=== PATIENT | female | born 1945 | race Caucasian/White ===

== ENCOUNTER → 2016-05-30 | Outpatient (CLI) | payer MEDICARE ==
--- NOTE | 2016-05-31 07:55 | US ---
EXAMINATION TYPE: US thyroid st tissue head/neck DATE OF EXAM: 05/30/2016 4:09 PM COMPARISON: NONE CLINICAL HISTORY: US. Edema right neck, history of recent ear infection TECHNOLOGIST IMPRESSION: Hypoechoic area right neck = 1.3 x 0.6 x 1.1cm, possible lymph node. Incide ntal finding: hypoechoic area right lobe of thyroid = 1.1 x 0.7 x 0.9cm This is not a classic lymph node. IMPRESSION: Hypoechoic mass in the right neck. A CT scan of the neck would be suggested.
== END | disposition home or self-care (01) ==
LOC: RADUSWWP 15:38
PROVIDERS: ATTEND Family Medicine
DX: R22.1 Localized swelling, mass and lump, neck (principal)
CPT/HCPCS: 76536

== ENCOUNTER → 2016-06-07 | Outpatient (CLI) | payer MEDICARE ==
[2016-06-07 14:00] LABS: Blood Urea Nitrogen 18 mg/dL (7-17); Non-African American GFR(MDRD) >60 (>60 ml/min/1.73 sqM)
--- NOTE | 2016-06-07 17:12 | CT ---
EXAMINATION TYPE: CT soft tissue neck w con DATE OF EXAM: 06/07/2016 2:32 PM COMPARISON: NONE HISTORY: Right sided neck swelling marked by BB CT DLP: 453 mGycm CONTRAST: Patient injected with 100 mL of Omnipaque 300. TECHNIQUE: Axial images at 3 mm thick sections. Reconstructed images in the coronal plane and sagitt al plane are reviewed. FINDINGS: Limited CT sections are obtained the lung apices. The lung apices appear clear. CT neck: The torus tubarius and fossa of Rosenmuller are normal. Test Desk Operator spaces are normal. Para nasal sinuses and mastoid air cells are clear. Thyroid is somewhat heterogenous. Parotid glands appear normal and symmetrical. Submandibular glands, are normal. Parapharyngeal spac es are normal. No suspicious adenopathy is evident. Previous placed over the right infraparotid kristi on. No suspicious underlying mass is evident. No suspicious adenopathy is evident. The hypopharynx appears within normal limits. Vocal cord level appear symmetrical. Thyroid as visualized is normal. Osseous structures are normal. IMPRESSIONS: 1. No suspicious abnormality to correspond to the palpable abnormality marked by the BB.
== END ==
LOC: RADCTMAIN 13:10
PROVIDERS: ATTEND Family Medicine
DX: R22.1 Localized swelling, mass and lump, neck (principal)
CPT/HCPCS: 82565; 84520; 70491; 36415; Q9967

== ENCOUNTER → 2017-02-01 | Outpatient (CLI) | payer MEDICARE ==
--- NOTE | 2017-02-01 14:14 | CT ---
EXAMINATION TYPE: CT iac wo con DATE OF EXAM: 02/01/2017 COMPARISON: CT neck June 07, 2016. HISTORY: Patient complains of recurrent ear infections and right sided hearing loss. CT DLP: 150 mGycm. Automated Exposure Control for Dose Reduction was Utilized. TECHNIQUE: CT scan of internal auditory canal is performed without contrast, thin cut axial images ar e obtained, coronal reformatted images are also reviewed. FINDINGS: The external auditory canals are patent bilaterally. Mastoid air cells show no evidence of abnormal opacification bilaterally. The middle ear ossicles are symmetric and unremarkable. There is no evidence of suspicious surrounding soft tissue density to suggest cholesteatoma. The scutum is preserved bilaterally. The cochlea and the semicircular canals are symmetric. Superior semicircular canal shows no definitive overlying bone on coronal images 91 bilaterally. Vestibular aqueduct and i nternal carotid canal appear unremarkable. Temporomandibular joints are maintained bilaterally. Visualized paranasal sinuses are grossly clear. Visualized portion brain parenchyma is felt within normal limits. IMPRESSION: No significant abnormality seen to account for patient's symptoms of right-sided hearing loss and recurrent ear infections. Superior semicircular canal dehiscence syndrome would be difficul t to exclude in the appropriate clinical setting.
== END | disposition home or self-care (01) ==
LOC: RADCTMAIN 12:25
PROVIDERS: ATTEND Otolaryngology
DX: H90.A11 Conductive hearing loss, unilateral, right ear with restricted hearing on the contralateral side (principal)
CPT/HCPCS: 70480

== ENCOUNTER → 2017-04-09 | Outpatient (CLI) | payer MEDICARE ==
--- NOTE | 2017-04-09 17:07 | BD ---
EXAMINATION TYPE: MG DEXA axial skeleton. DATE OF EXAM: 04/09/2017 COMPARISON: NONE CLINICAL HISTORY: 71-year-old female osteopenia Height: 60 IN Weight: 127 LBS FRAX RISK QUESTIONS: Alcohol (3 or more units per day): NO Family History (Parent hip fracture): NO Glucocorticoids (More than 3mos): NO (Ex: prednisone, prednisolone, methylprednisolone, dexamethasone, and hydrocortisone). History of Fracture in Adulthood: NO Secondary Osteoporosis: 1. Type 1 Diabetes: NO 2. Hyperthyroidism: NO 3. Menopause before 45: YES HYSTERECTOMY AGE 39 4. Malnutrition: NO 5. Chronic liver disease: NO Rheumatoid Arthritis: NO Current Tobacco Use: NO RISK FACTORS HISTORY OF: Family History of Osteoporosis: MOTHER, GRANDMOTHER(M), AUNT(M) Active: YES Postmenopausal woman: AGE 39 Take estrogen and/or progesterone medications: YES How long: PREMARIN SINCE AGE 39 MEDICATIONS: Osteoporosis Medications: YES Which medication: FOSAMAX How Lon YEARS+ Additional Medications: PREMARIN, ALENDRONATE SODIUM, MULTI VITAMIN, MELOXICAM, FLEXERIL, EXAM MEASUREMENTS: Bone mineral densitometry was performed using the [employer] System. Bone mineral density as measured about the Lumbar spine is: ----- L1-L4(G/cm2): 1.101 T Score Values are as follows: ----- L2: -0.4 ----- L3: -0.3 ----- L4: -1.4 ----- L1-L4: -0.7 Bone mineral density has: Increased 3.9% since study of: 02/14/2013 Bone mineral density about the R hip (g/cm2): 0.820 Bone mineral density about the L hip (g/cm2): 0.865 T Score values are as follows: -----R Neck: -1.6 -----L Neck: -1.2 -----R Total: -1.0 -----L Total: -0.4 Bone mineral density has: Increased 2.0% since study of: 02/14/2013 IMPRESSION: Osteopenia (T Score between -2.5 and -1 as noted by T score values There is slightly increased risk of fracture and the patient may be considered for treatment. Re-Screen 2-5 years. NOTE: T-SCORE=SD OF THE YOUNG ADULT MEAN.
--- NOTE | 2017-04-10 11:53 | MM ---
Reason for exam: screening (asymptomatic). Last mammogram was performed 1 year ago. History: Patient is postmenopausal and history of other cancer. Family history of breast cancer in mother at age 75. Benign left breast aspiration of the left breast, February 16, 2012. Taking estrogen for 23 years beginning at age 45. Physical Findings: A clinical breast exam by your physician is recommended on an annual basis and results should be correlated with mammographic findings. MG 3D Screening Mammo W/Cad Bilateral CC and MLO view(s) were taken. Prior study comparison: April 06, 2016, bilateral MG 3d screening mammo w/cad. February 17, 2015, bilateral MG diagnostic mammo w CAD [facility]. The breast tissue is heterogeneously dense. This may lower the sensitivity of mammography. Finding: There are typically benign vascular, round calcifications in both breasts. There is a chronic nodularity bilaterally. There is no discrete abnormality. ASSESSMENT: Benign, BI-RAD 2 RECOMMENDATION: Routine screening mammogram of both breasts in 1 year.
== END | disposition home or self-care (01) ==
LOC: RADMAMWWP 09:33
PROVIDERS: ATTEND Family Medicine
DX: Z12.31 Encounter for screening mammogram for malignant neoplasm of breast (principal); M85.80 Other specified disorders of bone density and structure, unspecified site
CPT/HCPCS: 77080; 77063; G0202

== ENCOUNTER → 2018-04-10 | Outpatient (CLI) | payer MEDICARE ==
--- NOTE | 2018-04-11 11:58 | MM ---
Reason for exam: screening (asymptomatic). Last mammogram was performed 1 year ago. History: Patient is postmenopausal and history of other cancer. Family history of breast cancer in mother at age 75. Benign left breast aspiration of the left breast, February 16, 2012. Taking estrogen for 23 years beginning at age 45. MG 3D Screening Mammo W/Cad Bilateral CC and MLO view(s) were taken. Prior study comparison: April 09, 2017, bilateral MG 3d screening mammo w/cad. April 06, 2016, bilateral MG 3d screening mammo w/cad. The breast tissue is heterogeneously dense. This may lower the sensitivity of mammography. There is a focal asymmety in the upper outer left breast 5.7 cm from the nipple. Finding is new when compared to previous study. ASSESSMENT: Incomplete: need additional imaging evaluation, BI-RAD 0 RECOMMENDATION: Special view mammogram of the left breast.
== END ==
LOC: RADMAMWWP 15:55
PROVIDERS: ATTEND Family Medicine
DX: Z12.31 Encounter for screening mammogram for malignant neoplasm of breast (principal)
CPT/HCPCS: 77063; 77067

== ENCOUNTER → 2018-04-17 | Outpatient (CLI) | payer MEDICARE ==
--- NOTE | 2018-04-17 12:02 | MM ---
Reason for exam: additional evaluation requested from abnormal screening. Last mammogram was performed less than 1 month ago. History: Patient is postmenopausal and history of other cancer. Family history of breast cancer in mother at age 75. Benign left breast aspiration of the left breast, February 16, 2012. Taking estrogen for 23 years beginning at age 45. Physical Findings: Nurse did not find any significant physical abnormalities on exam. MG 3D Work Up W/Cad LT Spot compression CC, spot compression MLO, and LM view(s) were taken of the left breast. Prior study comparison: April 10, 2018, bilateral MG 3d screening mammo w/cad. April 09, 2017, bilateral MG 3d screening mammo w/cad. The breast tissue is heterogeneously dense. This may lower the sensitivity of mammography. 7mm nodularity persists on spot 3D CC and 3D LM, slightly less defined on spot MLO. Located at 2 o'clock. These results were verbally communicated with the patient and result sheet given to the patient on 04/17/18. ASSESSMENT: Incomplete: need additional imaging evaluation, BI-RAD 0 RECOMMENDATION: Ultrasound of the left breast. (2 o'clock)
--- NOTE | 2018-04-17 12:05 | USB ---
Reason for exam: additional evaluation requested from abnormal screening. History: Patient is postmenopausal and history of other cancer. Family history of breast cancer in mother at age 75. Benign left breast aspiration of the left breast, February 16, 2012. Taking estrogen for 23 years beginning at age 45. US Breast Workup Limited LT Left limited breast ultrasound including focal area of concern, retroareolar and axilla demonstrates a 0.3 x 0.3 x 0.2cm oval lesion too small to characterize at 1 o'clock, a 0.5 x 0.4 x 0.4cm oval, cystic lesion at 2 o'clock, a 0.4 x 0.3 x 0.3cm oval, cystic lesion at 2 o'clock, a 0.5 x 0.6 x 0.5cm oval, clustered, hypoechoic lesion at 2:30, possibly a collapsed cyst given an 8mm cyst in this location in 2012, likely corresponds to the mammographic finding, 6 month follow up recommended and a 0.4 x 0.5 x 0.2cm oval, cystic lesion at 3 o'clock. These results were verbally communicated with the patient and result sheet given to the patient on 04/17/18. ASSESSMENT: Probably benign, BI-RAD 3 RECOMMENDATION: Follow-up diagnostic mammogram and ultrasound of the left breast in 6 months. (targeted 2 o'clock, 2:30 zone A)
== END | disposition home or self-care (01) ==
LOC: RADMAMWWP 07:52
PROVIDERS: ATTEND Family Medicine
DX: R92.8 Other abnormal and inconclusive findings on diagnostic imaging of breast (principal)
CPT/HCPCS: 77065; 76642; G0279; 77061

== ENCOUNTER → 2018-10-23 | Outpatient (CLI) | payer MEDICARE ==
--- NOTE | 2018-10-23 09:29 | MM ---
Reason for exam: follow-up at short interval from prior study. Last mammogram was performed 6 months ago. History: Patient is postmenopausal and history of other cancer. Family history of breast cancer in mother at age 75 and breast cancer in maternal grandmother at age 70. Benign left breast aspiration of the left breast, February 16, 2012. Taking estrogen for 23 years beginning at age 45. Physical Findings: Nurse Summary: 0.5cm nodule in the left breast at 4 o'clock (nurse mj). MG 3D Diag Mammo W/Cad LT CC and MLO view(s) were taken of the left breast. Prior study comparison: April 17, 2018, left breast MG 3d work up w/cad LT. April 10, 2018, bilateral MG 3d screening mammo w/cad. The breast tissue is heterogeneously dense. This may lower the sensitivity of mammography. There is chronic nodularity in the left breast. No significant new findings when compared with previous films. These results were verbally communicated with the patient and result sheet given to the patient on 10/23/18. ASSESSMENT: Incomplete: need additional imaging evaluation, BI-RAD 0 RECOMMENDATION: Ultrasound of the left breast. Manage patient on a clinical basis.
--- NOTE | 2018-10-23 09:32 | USB ---
Reason for exam: additional evaluation requested from abnormal screening. History: Patient is postmenopausal and history of other cancer. Family history of breast cancer in mother at age 75 and breast cancer in maternal grandmother at age 70. Benign left breast aspiration of the left breast, February 16, 2012. Taking estrogen for 23 years beginning at age 45. US Breast Limited LT Left limited breast ultrasound including focal area of concern, retroareolar and axilla demonstrates three cystic lesions measuring 0.5 x 0.5 x 0.3cm at 1 o'clock, 0.6 x 0.5 x 0.4cm at 2 o'clock and 0.3 x 0.3 x 0.2cm at 4 o'clock. These results were verbally communicated with the patient and result sheet given to the patient on 10/23/18. ASSESSMENT: Benign, BI-RAD 2 RECOMMENDATION: Return to routine screening mammogram schedule for both breasts. Back on schedule. Manage patient on a clinical basis.
== END | disposition home or self-care (01) ==
LOC: RADMAMWWP 08:09
PROVIDERS: ATTEND Family Medicine
DX: R92.8 Other abnormal and inconclusive findings on diagnostic imaging of breast (principal)
CPT/HCPCS: 77065; 76642; G0279; 77061

== ENCOUNTER → 2019-11-27 | Outpatient (CLI) | payer MEDICARE ==
--- NOTE | 2019-11-27 10:34 | USB ---
Reason for exam: clinical finding. History: Patient is postmenopausal and history of other cancer. Family history of breast cancer in mother at age 75 and breast cancer in maternal grandmother at age 70. Benign left breast aspiration of the left breast, February 16, 2012. Taking estrogen for 23 years beginning at age 45. Physical Findings: Nurse Summary: Patient complains of left lower outer quadrant tender achy x 2 months intermittent, all soft, moves, bilateral thickening 12 o'clock (nurse TM). US Breast BILAT Right complete breast ultrasound includes all four quadrants, the retroareolar region and axilla. Finding demonstrates a 0.4 x 0.3 x 0.5cm cystic cluster at 4 o'clock and a 0.6 x 0.5 x 0.6cm mixed, lobulated lesion at 7 o'clock, 6 month follow up recommended. Left complete breast ultrasound includes all four quadrants, the retroareolar region and axilla. Finding demonstrates a 0.5 x 0.6 x 0.4cm hypoechoic lesion at 2 o'clock vertically oriented but unchanged from 10/23/18 but larger from 04/17/18, follow up recommended, a 0.7 x 0.3 x 0.6cm cystic cluster at 6 o'clock and a 0.7 x 0.3 x 0.9cm cystic cluster at 11 o'clock. These results were verbally communicated with the patient and result sheet given to the patient on 11/27/19. ASSESSMENT: Incomplete: need additional imaging evaluation, BI-RAD 0 RECOMMENDATION: Special view mammogram of both breasts. (as the patient is past due for her annual)
--- NOTE | 2019-11-27 10:36 | MM ---
Reason for exam: additional evaluation requested from prior study. Last mammogram was performed 1 year and 1 month ago. History: Patient is postmenopausal and history of other cancer. Family history of breast cancer in mother at age 75 and breast cancer in maternal grandmother at age 70. Benign left breast aspiration of the left breast, February 16, 2012. Taking estrogen for 23 years beginning at age 45. MG 3D Diag Mammo W/Cad [facility] Bilateral CC and MLO view(s) were taken. Prior study comparison: October 23, 2018, left breast MG 3d diag mammo w/cad LT. April 17, 2018, left breast MG 3d work up w/cad LT. The breast tissue is heterogeneously dense. This may lower the sensitivity of mammography. There is chronic nodularity bilaterally some waxing and waning. Coarse calcifications near right axilla unchanged from 2018. These results were verbally communicated with the patient and result sheet given to the patient on 11/27/19. ASSESSMENT: Probably benign, BI-RAD 3 RECOMMENDATION: Ultrasound of both breasts in 6 months. Manage on a clinical basis with regard to left breast pain.
== END | disposition home or self-care (01) ==
LOC: RADUSWWP 07:21
PROVIDERS: ATTEND Family Medicine
DX: R92.8 Other abnormal and inconclusive findings on diagnostic imaging of breast (principal)
CPT/HCPCS: 77066; 76641; G0279; 77062

== ENCOUNTER → 2021-07-07 | Outpatient (CLI) | payer MEDICARE ==
[2021-07-07 15:51] LABS: African American GFR (CKD) 99.6 (60.0-200.0); Blood Urea Nitrogen 16.9 mg/dL (9.0-27.0); Carbon Dioxide 22.7 mmol/L (20.0-27.5); Chloride 106 mmol/L (96-109); Potassium 4.3 mmol/L (3.5-5.5); Sodium 139 mmol/L (135-145); Total Protein 6.5 g/dL (6.2-8.2)
[2021-07-07 16:25] LABS: ALT 15 U/L (8-44); AST 17 U/L (13-35); Albumin 3.8 g/dL (3.8-4.9); Bilirubin, Conjugated <0.20 mg/dL (0.20-0.40)
[2021-07-07 17:05] LABS: Basophils # (A) 0.04 X 10*3/uL (0.00-0.10); Basophils % (A) 0.8 %; Eosinophils # (A) 0.13 X 10*3/uL (0.04-0.35); Eosinophils % (A) 2.5 %; HCT 38.1 % (37.2-46.3); HGB 11.9 g/dL (12.0-15.0); Immature Grans, Automated 0.4 %; Lymphocytes # (A) 1.76 X 10*3/uL (0.90-5.00); Lymphocytes % (A) 33.9 %; MCH 31.2 pg (27.0-32.0); MCHC 31.2 g/dL (32.0-37.0); MCV 99.7 fL (80.0-97.0); Mean Platelet Volume 9.5 fL (9.5-12.2); Monocytes # (A) 0.49 X 10*3/uL (0.20-1.00); Monocytes % (A) 9.4 %; NRBC Per 100 WBC 0 /100 WBCS (0.0-0.0); Neutrophils # (A) 2.75 X 10*3/uL (1.80-7.70); Platelet Count 321 X 10*3/uL (140-440); RBC 3.82 X 10*6/uL (4.10-5.20); RDW 14.6 % (11.5-14.5); WBC 5.19 X 10*3/uL (4.50-10.00)
[2021-07-08 12:27] LABS: Alkaline Phosphatase 47 U/L (41-126)
[2021-07-08 13:24] LABS: C Reactive Protein <0.30 mg/dL (0.00-0.80)
== END | disposition home or self-care (01) ==
LOC: LABWHC1 08:03
PROVIDERS: ATTEND Internal Medicine Rheumatology
DX: M12.9 Arthropathy, unspecified (principal); Z79.899 Other long term (current) drug therapy
CPT/HCPCS: 36415; 80051; 82040; 82247; 82310; 82565; 84075; 84155; 84450; 84460; 84520; 85025; 85652; 86140

== ENCOUNTER → 2021-09-20 | Outpatient (CLI) | payer MEDICARE ==
[2021-09-20 14:28] LABS: African American GFR (CKD) 84.2 (60.0-200.0); Blood Urea Nitrogen 17.3 mg/dL (9.0-27.0); Calcium 9.3 mg/dL (8.7-10.3); Carbon Dioxide 22.5 mmol/L (20.0-27.5); Chloride 107 mmol/L (96-109); Non-African American GFR(CKD) 72.6 (60.0-200.0); Potassium 4.2 mmol/L (3.5-5.5); Sodium 139 mmol/L (135-145); Total Protein 6.3 g/dL (6.2-8.2)
[2021-09-20 14:29] LABS: Alkaline Phosphatase 56 U/L (41-126)
[2021-09-20 14:34] LABS: ALT 12 U/L (8-44); AST 17 U/L (13-35); Albumin 3.7 g/dL (3.8-4.9); Bilirubin, Conjugated <0.20 mg/dL (0.20-0.40)
[2021-09-20 16:33] LABS: Basophils # (A) 0.06 X 10*3/uL (0.00-0.10); Basophils % (A) 1.1 %; Eosinophils # (A) 0.12 X 10*3/uL (0.04-0.35); Eosinophils % (A) 2.3 %; HCT 32.4 % (37.2-46.3); HGB 11.3 g/dL (12.0-15.0); Immature Grans, Automated 0.4 %; Lymphocytes # (A) 1.76 X 10*3/uL (0.90-5.00); Lymphocytes % (A) 33.4 %; MCH 35.6 pg (27.0-32.0); MCHC 34.9 g/dL (32.0-37.0); MCV 102.2 fL (80.0-97.0); Mean Platelet Volume 9.3 fL (9.5-12.2); Monocytes # (A) 0.51 X 10*3/uL (0.20-1.00); Monocytes % (A) 9.7 %; NRBC Per 100 WBC 0 /100 WBCS (0.0-0.0); Neutrophils % (A) 53.1 %; Platelet Count 314 X 10*3/uL (140-440); RBC 3.17 X 10*6/uL (4.10-5.20); RDW 18.7 % (11.5-14.5); WBC 5.27 X 10*3/uL (4.50-10.00)
[2021-09-20 16:37] LABS: Erythrocyte Sedimentation Rate 1 mm/Hr (0-30)
== END | disposition home or self-care (01) ==
LOC: LABWHC1 07:24
PROVIDERS: ATTEND Internal Medicine Rheumatology
DX: M05.9 Rheumatoid arthritis with rheumatoid factor, unspecified (principal); Z79.899 Other long term (current) drug therapy
CPT/HCPCS: 36415; 80051; 82040; 82247; 82310; 82565; 84075; 84155; 84450; 84460; 84520; 85025; 85652; 86140

== ENCOUNTER → 2021-12-20 | Outpatient (CLI) | payer MEDICARE ==
[2021-12-20 22:36] LABS: African American GFR (CKD) 87.2 (60.0-200.0); Bilirubin, Conjugated <0.20 mg/dL (0.20-0.40); Carbon Dioxide 24.4 mmol/L (20.0-27.5); Chloride 105 mmol/L (96-109); Non-African American GFR(CKD) 75.2 (60.0-200.0); Potassium 4.5 mmol/L (3.5-5.5); Sodium 139 mmol/L (135-145)
[2021-12-20 22:37] LABS: Blood Urea Nitrogen 18.9 mg/dL (9.0-27.0); Calcium 9.9 mg/dL (8.7-10.3)
[2021-12-20 23:46] LABS: Basophils # (A) 0.05 X 10*3/uL (0.00-0.10); Basophils % (A) 0.8 %; Eosinophils # (A) 0.15 X 10*3/uL (0.04-0.35); Eosinophils % (A) 2.3 %; HCT 31.5 % (37.2-46.3); HGB 11.8 g/dL (12.0-15.0); Immature Grans, Automated 0.3 %; Lymphocytes # (A) 1.79 X 10*3/uL (0.90-5.00); Lymphocytes % (A) 26.9 %; MCH 40.1 pg (27.0-32.0); MCHC 37.5 g/dL (32.0-37.0); MCV 107.1 fL (80.0-97.0); Mean Platelet Volume 9.7 fL (9.5-12.2); NRBC Per 100 WBC 0 /100 WBCS (0.0-0.0); Neutrophils # (A) 4.05 X 10*3/uL (1.80-7.70); Neutrophils % (A) 60.7 %; Platelet Count 316 X 10*3/uL (140-440); RBC 2.94 X 10*6/uL (4.10-5.20); RDW 20.9 % (11.5-14.5); WBC 6.66 X 10*3/uL (4.50-10.00)
[2021-12-20 23:51] LABS: Erythrocyte Sedimentation Rate 1 mm/Hr (0-30)
[2021-12-21 02:31] LABS: ALT 14 U/L (8-44); AST 18 U/L (13-35); Albumin 3.9 g/dL (3.8-4.9); Alkaline Phosphatase 56 U/L (41-126); Total Protein 6.7 g/dL (6.2-8.2)
== END | disposition home or self-care (01) ==
LOC: LABWHC1 13:34
PROVIDERS: ATTEND Internal Medicine Rheumatology
DX: M05.9 Rheumatoid arthritis with rheumatoid factor, unspecified (principal); Z79.899 Other long term (current) drug therapy
CPT/HCPCS: 36415; 80051; 82040; 82248; 82310; 82565; 84075; 84155; 84450; 84460; 84520; 85025; 85652; 86140

== ENCOUNTER → 2022-03-27 | Outpatient (CLI) | payer MEDICARE ==
[2022-03-27 14:36] LABS: Erythrocyte Sedimentation Rate 1 mm/Hr (0-30)
[2022-03-27 14:47] LABS: C Reactive Protein 0.9 mg/dL (0.00-0.80)
[2022-03-27 15:01] LABS: African American GFR (CKD) 96.9 (60.0-200.0); Blood Urea Nitrogen 19.8 mg/dL (9.0-27.0); Calcium 9.4 mg/dL (8.7-10.3); Carbon Dioxide 25.1 mmol/L (20.0-27.5); Non-African American GFR(CKD) 83.6 (60.0-200.0); Potassium 4.4 mmol/L (3.5-5.5); Total Protein 6.9 g/dL (6.2-8.2)
[2022-03-27 15:40] LABS: Basophils # (A) 0.06 X 10*3/uL (0.00-0.10); Basophils % (A) 0.9 %; Eosinophils # (A) 0.18 X 10*3/uL (0.04-0.35); Eosinophils % (A) 2.6 %; HGB 12.2 g/dL (12.0-15.0); Immature Grans, Automated 0.3 %; Lymphocytes # (A) 1.67 X 10*3/uL (0.90-5.00); Lymphocytes % (A) 24.1 %; MCH 33.1 pg (27.0-32.0); MCV 100.3 fL (80.0-97.0); Mean Platelet Volume 9.1 fL (9.5-12.2); Monocytes # (A) 0.62 X 10*3/uL (0.20-1.00); Monocytes % (A) 8.9 %; NRBC Per 100 WBC 0 /100 WBCS (0.0-0.0); Neutrophils # (A) 4.38 X 10*3/uL (1.80-7.70); Neutrophils % (A) 63.2 %; Platelet Count 377 X 10*3/uL (140-440); RBC 3.69 X 10*6/uL (4.10-5.20); WBC 6.93 X 10*3/uL (4.50-10.00)
[2022-03-27 23:20] LABS: Microalbumin Creatinine Ratio <30 mg/g Creat (0-30)
== END | disposition home or self-care (01) ==
LOC: LABWHC1 09:05
PROVIDERS: ATTEND Internal Medicine Rheumatology
DX: M05.9 Rheumatoid arthritis with rheumatoid factor, unspecified (principal); Z79.899 Other long term (current) drug therapy
CPT/HCPCS: 36415; 80051; 82043; 82310; 82565; 82570; 84075; 84155; 84450; 84460; 84520; 85025; 85652; 86140

== ENCOUNTER → 2022-06-14 | Outpatient (CLI) | payer MEDICARE ==
--- NOTE | 2022-06-14 15:30 | USB ---
Reason for Exam: Follow-up at short interval from prior study. Patient History: Menarche at age 13. First Full-Term at age 21. Hysterectomy at age 39. Postmenopausal. Currently using Estrogen, beginning at age 45 for 23 years. 02/16/2012, Benign Cyst Aspiration on the left side. Maternal grandmother had breast cancer, age 70. Mother had breast cancer, age 75. Risk Values: Flor 5 year model risk: 3.6%. NCI Lifetime model risk: 8.2%. Technique: Method: Whole Breast Automated. Patient Position: Supine. Prior Study Comparison: 04/17/2018 Left Diagnostic Mammogram, [facility]. 10/23/2018 Left Diagnostic Mammogram, [facility]. 11/27/2019 Bilateral Diagnostic Mammogram, [facility]. Findings: The whole breast of both breasts, the axilla of both breasts and the retroareolar of both breasts were scanned. Scattered simple cysts seen bilaterally throughout both breasts. No abnormality noted by ultrasound.A complete US of all four quadrants of the bilateral breasts and retro-areolar region were reviewed. No solid or cystic masses are identified.. Anechoic benign-appearing cysts are seen bilaterally, leasing representative examples were imaged by the shoe repairer. No suspicious masses or organizing fluid collections. Right: Multiple subcentimeter anechoic cysts are seen throughout the breasts. No suspicious cysts are identified. Left: Multiple subcentimeter anechoic cysts are seen throughout the breasts. No suspicious cysts are identified. Overall Assessment: Benign, BI-RAD 2 Management: Screening Mammogram of both breasts in 1 year. A clinical breast exam by your physician is recommended on an annual basis and results should be correlated with mammographic findings. This exam should not preclude additional follow-up of suspicious palpable abnormalities. Results were given to the patient verbally at the time of exam. Electronically signed and approved by: Daniel Do DO
--- NOTE | 2022-06-14 15:30 | MM ---
Reason for Exam: Additional evaluation requested from prior study. Last mammogram was performed 2 year(s) and 6 month(s) ago. Patient History: Menarche at age 13. First Full-Term at age 21. Hysterectomy at age 39. Postmenopausal. Currently using Estrogen, beginning at age 45 for 23 years. 02/16/2012, Benign Cyst Aspiration on the left side. Maternal grandmother had breast cancer, age 70. Mother had breast cancer, age 75. Risk Values: Flor 5 year model risk: 3.6%. NCI Lifetime model risk: 8.2%. Prior Study Comparison: 05/08/1995 Screening Mammogram, Unknown. 04/09/2017 Bilateral Screening Mammogram, [facility]. 04/17/2018 Left Diagnostic Mammogram, [facility]. 10/23/2018 Left Diagnostic Mammogram, [facility]. 11/27/2019 Bilateral Diagnostic Mammogram, [facility]. Tissue Density: The breast tissue is heterogeneously dense. This may lower the sensitivity of mammography. Findings: Analyzed By CAD. Heterogenous appearance without suspicious mass, calcifications or distortions. Multiple cysts will be confirmed on same-day ultrasound. Overall Assessment: Incomplete: need additional imaging evaluation, BI-RAD 0 Management: Diagnostic Breast Ultrasound of both breasts. A clinical breast exam by your physician is recommended on an annual basis and results should be correlated with mammographic findings. This exam should not preclude additional follow-up of suspicious palpable abnormalities. Results were given to the patient verbally at the time of exam. Electronically signed and approved by: Daniel Do DO
== END | disposition home or self-care (01) ==
LOC: RADMAMWWP 14:06
PROVIDERS: ATTEND Family Medicine
DX: R92.8 Other abnormal and inconclusive findings on diagnostic imaging of breast (principal); N60.02 Solitary cyst of left breast; Z78.0 Asymptomatic menopausal state; Z80.3 Family history of malignant neoplasm of breast
CPT/HCPCS: 77066; 76641; G0279; 77062

== ENCOUNTER → 2022-06-20 | Outpatient (CLI) | payer MEDICARE ==
[2022-06-20 18:49] LABS: Erythrocyte Sedimentation Rate 3 mm/Hr (0-30)
[2022-06-20 20:00] LABS: Basophils # (A) 0.07 X 10*3/uL (0.00-0.10); Basophils % (A) 0.9 %; Eosinophils # (A) 0.14 X 10*3/uL (0.04-0.35); Eosinophils % (A) 1.8 %; HCT 40.7 % (37.2-46.3); HGB 12.9 g/dL (12.0-15.0); Immature Grans, Automated 0.4 %; Lymphocytes % (A) 23.9 %; MCH 31.9 pg (27.0-32.0); MCHC 31.7 g/dL (32.0-37.0); MCV 100.5 fL (80.0-97.0); Mean Platelet Volume 9.7 fL (9.5-12.2); Monocytes # (A) 0.65 X 10*3/uL (0.20-1.00); Monocytes % (A) 8.2 %; NRBC Per 100 WBC 0 /100 WBCS (0.0-0.0); Neutrophils # (A) 5.17 X 10*3/uL (1.80-7.70); Neutrophils % (A) 64.8 %; Platelet Count 374 X 10*3/uL (140-440); RBC 4.05 X 10*6/uL (4.10-5.20); RDW 15.8 % (11.5-14.5); WBC 7.96 X 10*3/uL (4.50-10.00)
[2022-06-20 20:02] LABS: African American GFR (CKD) 85.1 (60.0-200.0); Bilirubin, Conjugated <0.20 mg/dL (0.20-0.40); Blood Urea Nitrogen 21.2 mg/dL (9.0-27.0); Non-African American GFR(CKD) 73.4 (60.0-200.0)
[2022-06-20 20:26] LABS: ALT 12 U/L (8-44); AST 20 U/L (13-35); Albumin 4.1 g/dL (3.8-4.9); Alkaline Phosphatase <5 U/L (41-126); Total Protein 7.3 g/dL (6.2-8.2)
== END | disposition home or self-care (01) ==
LOC: LABWHC1 10:46
PROVIDERS: ATTEND Internal Medicine Rheumatology
DX: M05.9 Rheumatoid arthritis with rheumatoid factor, unspecified (principal); Z79.899 Other long term (current) drug therapy
CPT/HCPCS: 36415; 80051; 82040; 82248; 82310; 82565; 84075; 84155; 84450; 84460; 84520; 85025; 85652; 86140

== ENCOUNTER → 2022-06-27 | Outpatient (CLI) | payer MEDICARE ==
[2022-06-27 10:28] LABS: African American GFR (CKD) 98.9 (60.0-200.0); Bilirubin, Conjugated <0.20 mg/dL (0.20-0.40); Calcium 9.5 mg/dL (8.7-10.3); Carbon Dioxide 24.6 mmol/L (20.0-27.5); Chloride 103 mmol/L (96-109); Non-African American GFR(CKD) 85.4 (60.0-200.0); Sodium 139 mmol/L (135-145)
[2022-06-27 11:16] LABS: Basophils # (A) 0.05 X 10*3/uL (0.00-0.10); Basophils % (A) 0.8 %; Eosinophils # (A) 0.19 X 10*3/uL (0.04-0.35); Eosinophils % (A) 3.1 %; HCT 37.2 % (37.2-46.3); HGB 12.3 g/dL (12.0-15.0); Immature Grans, Automated 0.5 %; Lymphocytes # (A) 1.79 X 10*3/uL (0.90-5.00); Lymphocytes % (A) 29.4 %; MCH 33.2 pg (27.0-32.0); MCHC 33.1 g/dL (32.0-37.0); MCV 100.3 fL (80.0-97.0); Mean Platelet Volume 9.7 fL (9.5-12.2); Monocytes % (A) 8.2 %; NRBC Per 100 WBC 0 /100 WBCS (0.0-0.0); Neutrophils # (A) 3.52 X 10*3/uL (1.80-7.70); Platelet Count 319 X 10*3/uL (140-440); RBC 3.71 X 10*6/uL (4.10-5.20); RDW 16.6 % (11.5-14.5); WBC 6.08 X 10*3/uL (4.50-10.00)
[2022-06-27 11:21] LABS: Erythrocyte Sedimentation Rate 1 mm/Hr (0-30)
[2022-06-27 11:41] LABS: Albumin 3.8 g/dL (3.8-4.9); Alkaline Phosphatase 62 U/L (41-126); Total Protein 6.7 g/dL (6.2-8.2)
== END | disposition home or self-care (01) ==
LOC: LABWHC1 07:32
PROVIDERS: ATTEND Internal Medicine Rheumatology
DX: M05.9 Rheumatoid arthritis with rheumatoid factor, unspecified (principal); Z79.899 Other long term (current) drug therapy
CPT/HCPCS: 36415; 80051; 82040; 82248; 82310; 82565; 84075; 84155; 84520; 85025; 85652; 86140

== ENCOUNTER → 2022-10-09 | Outpatient (CLI) | payer MEDICARE ==
[2022-10-10 02:27] LABS: Albumin 3.8 g/dL (3.8-4.9)
[2022-10-10 02:28] LABS: ALT 10 U/L (8-44); AST 13 U/L (13-35); Alkaline Phosphatase 64 U/L (41-126); Total Protein 6.8 g/dL (6.2-8.2)
[2022-10-10 02:29] LABS: African American GFR (CKD) 98.2 (60.0-200.0); Bilirubin, Conjugated <0.20 mg/dL (0.20-0.40); Blood Urea Nitrogen 19.7 mg/dL (9.0-27.0); Calcium 9.6 mg/dL (8.7-10.3); Carbon Dioxide 25.8 mmol/L (20.0-27.5); Chloride 103 mmol/L (96-109); Non-African American GFR(CKD) 84.8 (60.0-200.0); Potassium 4.3 mmol/L (3.5-5.5); Sodium 140 mmol/L (135-145); Total Bilirubin <0.15 mg/dL (0.30-1.20)
[2022-10-10 05:40] LABS: Basophils # (A) 0.04 X 10*3/uL (0.00-0.10); Basophils % (A) 0.5 %; Eosinophils # (A) 0.25 X 10*3/uL (0.04-0.35); Eosinophils % (A) 2.9 %; HCT 35.7 % (37.2-46.3); HGB 11.8 g/dL (12.0-15.0); Immature Grans, Automated 0.2 %; Immature Platelet Fraction 2.1 % (1.1-6.1); Lymphocytes # (A) 1.82 X 10*3/uL (0.90-5.00); Lymphocytes % (A) 20.8 %; MCH 34.6 pg (27.0-32.0); MCHC 33.1 g/dL (32.0-37.0); MCV 104.7 fL (80.0-97.0); Mean Platelet Volume 8.9 fL (9.5-12.2); Monocytes # (A) 0.66 X 10*3/uL (0.20-1.00); Monocytes % (A) 7.5 %; NRBC Per 100 WBC 0 /100 WBCS (0.0-0.0); Neutrophils # (A) 5.97 X 10*3/uL (1.80-7.70); Neutrophils % (A) 68.1 %; Platelet Count 432 X 10*3/uL (140-440); RBC 3.41 X 10*6/uL (4.10-5.20); RDW 17.6 % (11.5-14.5); WBC 8.76 X 10*3/uL (4.50-10.00)
[2022-10-10 05:53] LABS: Erythrocyte Sedimentation Rate 3 mm/Hr (0-30)
== END | disposition home or self-care (01) ==
LOC: LABWHC1 14:01
PROVIDERS: ATTEND Internal Medicine Rheumatology
DX: M05.9 Rheumatoid arthritis with rheumatoid factor, unspecified (principal); Z79.899 Other long term (current) drug therapy
CPT/HCPCS: 36415; 80051; 82040; 82248; 82310; 82565; 84075; 84155; 84450; 84460; 84520; 85025; 85652; 86140

== ENCOUNTER → 2023-03-23 | Outpatient (CLI) | payer MEDICARE ==
[2023-03-24 00:54] LABS: ALT 10 U/L (8-44); AST 14 U/L (13-35); Albumin 3.9 d/dL (3.8-4.9); Alkaline Phosphatase 64 U/L (41-126); Bilirubin, Conjugated <0.20 mg/dL (0.20-0.40); Blood Urea Nitrogen 21.2 mg/dL (9.0-27.0); Calcium 9.5 mg/dL (8.7-10.3); Carbon Dioxide 17.4 mmol/L (21.6-31.8); Chloride 103 mmol/L (96-109); Potassium 4.3 mmol/L (3.5-5.5); Sodium 140 mmol/L (135-145); Total Bilirubin <0.2 mg/dL (0.3-1.2); Total Protein 7.2 d/dL (6.2-8.2)
[2023-03-24 04:03] LABS: Basophils # (A) 0.06 X 10*3/uL (0.00-0.10); Basophils % (A) 0.5 %; Eosinophils % (A) 1.7 %; HGB 12.2 d/dL (12.0-15.0); Immature Platelet Fraction 2.2 % (1.1-6.1); Lymphocytes # (A) 1.85 X 10*3/uL (0.90-5.00); Lymphocytes % (A) 15.9 %; MCHC 31.3 d/dL (32.0-37.0); MCV 99.2 FL (80.0-97.0); Mean Platelet Volume 8.9 FL (9.5-12.2); Monocytes # (A) 0.92 X 10*3/uL (0.20-1.00); Monocytes % (A) 7.9 %; NRBC Per 100 WBC 0 X 10*3/uL (0.00-0.01); Neutrophils # (A) 8.59 X 10*3/uL (1.80-7.70); Neutrophils % (A) 73.7 %; Platelet Count 373 X 10*3/uL (140-440); RBC 3.93 X 10*6/uL (4.10-5.20); RDW 15.5 % (11.5-14.5); WBC 11.66 X 10*3/uL (4.50-10.00)
== END | disposition home or self-care (01) ==
LOC: LABWHC1 14:05
PROVIDERS: ATTEND Internal Medicine Rheumatology
DX: M05.9 Rheumatoid arthritis with rheumatoid factor, unspecified (principal); Z79.899 Other long term (current) drug therapy
CPT/HCPCS: 36415; 80051; 82040; 82248; 82310; 82565; 84075; 84155; 84450; 84460; 84520; 85025; 85652; 86140

== ENCOUNTER → 2023-06-20 | Outpatient (CLI) | payer MEDICARE ==
[2023-06-20 18:17] LABS: ALT 26 U/L (8-44); AST 21 U/L (13-35); Albumin 3.7 g/dL (3.8-4.9); Alkaline Phosphatase 77 U/L (41-126); Bilirubin, Conjugated <0.20 mg/dL (0.20-0.40); Bilirubin,Unconjugated >0.10 mg/dL (0.20-1.00); Blood Urea Nitrogen 15.7 mg/dL (9.0-27.0); Calcium 9.6 mg/dL (8.7-10.3); Carbon Dioxide 28.3 mmol/L (21.6-31.8); Chloride 102 mmol/L (96-109); Potassium 4.3 mmol/L (3.5-5.5); Sodium 139 mmol/L (135-145); Total Bilirubin 0.3 mg/dL (0.3-1.2); Total Protein 6.4 g/dL (6.2-8.2)
[2023-06-20 20:13] LABS: Basophils # (A) 0.02 X 10*3/uL (0.00-0.10); Basophils % (A) 0.4 %; Eosinophils # (A) 0.03 X 10*3/uL (0.04-0.35); Eosinophils % (A) 0.6 %; HCT 33.6 % (37.2-46.3); HGB 11.9 g/dL (12.0-15.0); Lymphocytes # (A) 1.33 X 10*3/uL (0.90-5.00); Lymphocytes % (A) 28.1 %; MCH 36.3 pg (27.0-32.0); MCHC 35.4 g/dL (32.0-37.0); MCV 102.4 FL (80.0-97.0); Mean Platelet Volume 9.4 FL (9.5-12.2); Monocytes # (A) 0.35 X 10*3/uL (0.20-1.00); Monocytes % (A) 7.4 %; NRBC Per 100 WBC 0 X 10*3/uL (0.00-0.01); Neutrophils # (A) 2.96 X 10*3/uL (1.80-7.70); Neutrophils % (A) 62.7 %; Platelet Count 220 X 10*3/uL (140-440); RBC 3.28 X 10*6/uL (4.10-5.20); RDW 19.4 % (11.5-14.5); WBC 4.73 X 10*3/uL (4.50-10.00)
== END | disposition home or self-care (01) ==
LOC: LABWHC1 15:20
PROVIDERS: ATTEND Internal Medicine Rheumatology
DX: M05.9 Rheumatoid arthritis with rheumatoid factor, unspecified (principal); Z79.899 Other long term (current) drug therapy
CPT/HCPCS: 36415; 80051; 82040; 82248; 82310; 82565; 84075; 84155; 84450; 84460; 84520; 85025; 85652; 86140

== ENCOUNTER → 2023-12-21 | Outpatient (CLI) | payer MEDICARE ==
[2023-12-21 18:55] LABS: ALT 11 U/L (8-44); AST 19 U/L (13-35); Albumin 4.4 g/dL (3.8-4.9); Alkaline Phosphatase 66 U/L (41-126); Bilirubin, Conjugated <0.20 mg/dL (0.20-0.40); Bilirubin,Unconjugated >0.10 mg/dL (0.20-1.00); Calcium 10.2 mg/dL (8.7-10.3); Chloride 103 mmol/L (96-109); Potassium 4.2 mmol/L (3.5-5.5); Sodium 140 mmol/L (135-145); Total Bilirubin 0.3 mg/dL (0.3-1.2); Total Protein 6.7 g/dL (6.2-8.2)
[2023-12-21 19:14] LABS: Immunoglobulin M 68.3 mg/dL (40.0-280.0)
[2023-12-21 20:12] LABS: Anti-DNA, DS unit <1.0 IU/mL; Anti-Smith Ab Interp Negative (Negative); DNA Double-Stranded Negative (Negative)
[2023-12-21 21:45] LABS: Basophils # (A) 0.05 X 10*3/uL (0.00-0.10); Basophils % (A) 0.7 %; Eosinophils # (A) 0.12 X 10*3/uL (0.04-0.35); Eosinophils % (A) 1.7 %; HCT 37.9 % (37.2-46.3); HGB 13.2 g/dL (12.0-15.0); Lymphocytes # (A) 1.77 X 10*3/uL (0.90-5.00); Lymphocytes % (A) 25.7 %; MCH 34.8 pg (27.0-32.0); MCHC 34.8 g/dL (32.0-37.0); Mean Platelet Volume 9.2 FL (9.5-12.2); Monocytes # (A) 0.51 X 10*3/uL (0.20-1.00); Monocytes % (A) 7.4 %; NRBC Per 100 WBC 0 X 10*3/uL (0.00-0.01); Neutrophils # (A) 4.41 X 10*3/uL (1.80-7.70); Neutrophils % (A) 64.1 %; Platelet Count 308 X 10*3/uL (140-440); RBC 3.79 X 10*6/uL (4.10-5.20); RDW 18.6 % (11.5-14.5); WBC 6.89 X 10*3/uL (4.50-10.00)
== END | disposition home or self-care (01) ==
LOC: LABWHC1 13:54
PROVIDERS: ATTEND Internal Medicine Rheumatology
DX: M05.9 Rheumatoid arthritis with rheumatoid factor, unspecified (principal); L50.9 Urticaria, unspecified; Z79.899 Other long term (current) drug therapy
CPT/HCPCS: 36415; 80051; 82040; 82248; 82310; 82565; 82784; 82785; 83516; 84075; 84155; 84450; 84460; 84520; 85025; 85652; 86038; 86140; 86160; 86225; 86235; 86376

== ENCOUNTER → 2023-12-26 | Outpatient (CLI) | payer MEDICARE ==
--- NOTE | 2023-12-26 08:05 | MM ---
Reason for Exam: Additional evaluation requested from prior study. Last mammogram was performed 1 year(s) and 6 month(s) ago. Patient History: Menarche at age 13. First Full-Term at age 21. Hysterectomy at age 39. Postmenopausal. Currently using Estrogen, beginning at age 45 for 23 years. 02/16/2012, Benign Cyst Aspiration on the left side. Maternal grandmother had breast cancer, age 70. Mother had breast cancer, age 75. Risk Values: Flor 5 year model risk: 3.6%. NCI Lifetime model risk: 7.2%. Prior Study Comparison: 04/09/2017 Bilateral Screening Mammogram, [facility]. 04/10/2018 Bilateral Screening Mammogram, [facility]. 04/17/2018 Left Diagnostic Mammogram, [facility]. 10/23/2018 Left Diagnostic Mammogram, [facility]. 11/27/2019 Bilateral Diagnostic Mammogram, [facility]. 06/14/2022 Bilateral MG 3D diag mammo w/cad [facility], [facility]. Tissue Density: The breasts are heterogeneously dense, which may obscure small masses. Findings: Analyzed By CAD. There is chronic nodularity seen bilaterally without significant change relative to the prior study. No new areas of distortion or masses seen. No suspicious microcalcifications evident. Overall Assessment: Benign, BI-RAD 2 Management: Screening Mammogram of both breasts in 1 year. . Results were given to the patient verbally at the time of exam. Patient should continue monthly self-breast exams. A clinical breast exam by your physician is recommended on an annual basis. This exam should not preclude additional follow-up of suspicious palpable abnormalities. Note on Flor scores and lifetime risk: 1. A Flor score greater than 3% is considered moderate risk. If this is the case, consider specialist referral to assess eligibility for a risk reducing agent. 2. If overall lifetime risk for the development of breast cancer is 20% or higher, the patient may qualify for future screening with alternating mammogram and breast MRI. Electronically signed and approved by: Adam Alexander M.D. Radiologis
== END | disposition home or self-care (01) ==
LOC: RADMAMWWP 07:27
PROVIDERS: ATTEND Family Medicine
DX: R92.8 Other abnormal and inconclusive findings on diagnostic imaging of breast (principal); R92.333 Mammographic heterogeneous density, bilateral breasts; Z78.0 Asymptomatic menopausal state; Z80.3 Family history of malignant neoplasm of breast
CPT/HCPCS: 77066; G0279; 77062

== ENCOUNTER → 2024-12-24 | Outpatient (CLI) | payer MEDICARE ==
[2024-12-24 15:25] LABS: Anion Gap 10.10 mmol/L (4.00-12.00); BUN/Creat Ratio 26.57 Ratio (12.00-20.00); Blood Urea Nitrogen 18.6 mg/dL (9.0-27.0); Calcium 10.1 mg/dL (8.7-10.3); Carbon Dioxide 27.9 mmol/L (21.6-31.8); Chloride 102 mmol/L (96-109); Glucose 106 mg/dL (70-110); Potassium 4.3 mmol/L (3.5-5.5); Sodium 140 mmol/L (135-145)
[2024-12-24 15:26] LABS: ALT 24 U/L (8-44); AST 24 U/L (13-35); Albumin 4.7 g/dL (3.8-4.9); Alkaline Phosphatase 86 U/L (41-126); Bilirubin,Unconjugated >0.20 mg/dL (0.20-1.00); Total Protein 6.9 g/dL (6.2-8.2)
[2024-12-24 16:17] LABS: Basophils # (A) 0.05 X 10*3/uL (0.00-0.10); Basophils % (A) 0.9 %; Eosinophils # (A) 0.09 X 10*3/uL (0.04-0.35); Eosinophils % (A) 1.7 %; HCT 37.1 % (37.2-46.3); HGB 12.6 g/dL (12.0-15.0); Immature Grans, Automated 0.20 %; Lymphocytes # (A) 1.61 X 10*3/uL (0.90-5.00); Lymphocytes % (A) 30.2 %; MCH 34.1 pg (27.0-32.0); MCHC 34.0 g/dL (32.0-37.0); MCV 100.3 FL (80.0-97.0); Monocytes # (A) 0.57 X 10*3/uL (0.20-1.00); Monocytes % (A) 10.7 %; NRBC Per 100 WBC 0 X 10*3/uL (0.00-0.01); Neutrophils # (A) 3.00 X 10*3/uL (1.80-7.70); Neutrophils % (A) 56.3 %; Platelet Count 293 X 10*3/uL (140-440); RBC 3.70 X 10*6/uL (4.10-5.20); RDW 18.6 % (11.5-14.5); WBC 5.33 X 10*3/uL (4.50-10.00)
== END | disposition home or self-care (01) ==
LOC: LABWHC1 09:18
PROVIDERS: ATTEND Nurse Practitioner Gerontology
DX: I10 Essential (primary) hypertension (principal); M05.79 Rheumatoid arthritis with rheumatoid factor of multiple sites without organ or systems involvement; Z79.899 Other long term (current) drug therapy
CPT/HCPCS: 36415; 80048; 82040; 82248; 84075; 84155; 84450; 84460; 85025; 85652; 86140